=== PATIENT | male | born 1990 | race Caucasian/White ===

== ENCOUNTER 2019-07-28 07:38 | Emergency (ER) | payer OTHER ==
[~2019-07-28] VITALS: Ht 182.9 cm; Wt 81.7 kg
[2019-07-28 08:03] LABS: ABSOLUTE EOSINOPHILS 0.1 thou/uL (0.0-0.7); ABSOLUTE LYMPHOCYTES 1.4 thou/uL (0.8-5.3); ABSOLUTE MONOCYTES 0.5 thou/uL (0.0-1.2); BASOPHILS 0.9 %; EOSINOPHILS 2.5 %; HEMATOCRIT 42.7 % (42.0-52.0); HEMOGLOBIN 14.9 gm/dL (14.0-18.0); LYMPHOCYTES 27.7 %; MCH 29.6 pg (26.0-34.0); MCHC 34.9 g/dL (28.0-37.0); MCV 84.9 fL (80.0-100.0); MONOCYTES 9.3 %; MPV 9.2 fl. (7.2-11.1); NUCLEATED RBCS 0 /100WBC; PLATELET COUNT* 198 thou/uL (150-400); POLYS 59.6 %; RBC 5.03 mil/uL (4.50-6.00); RDW-CV 14.1 % (10.5-14.5); WBC 5.1 thou/uL (4.0-11.0)
[2019-07-28 08:03] LABS: URINE BILIRUBIN NEGATIVE (Negative); URINE BLOOD 3+ (Negative); URINE CLARITY SL CLOUDY; URINE COLOR YELLOW; URINE GLUCOSE-RANDOM NEGATIVE (Negative); URINE KETONES NEGATIVE (Negative); URINE LEUKOCYTES-REFLEX NEGATIVE (Negative); URINE NITRITE-REFLEX NEGATIVE (Negative); URINE PROTEIN TRACE (Negative); URINE SPECIFIC GRAVITY >= 1.030 (1.005-1.030); URINE UROBILINOGEN 0.2 E.U./dl (0.2-1.0)
[2019-07-28 08:08] LABS: CALCIUM 8.8 mg/dL (8.5-10.1); POTASSIUM 3.5 mmol/L (3.5-5.1)
[2019-07-28 08:12] LABS: ALBUMIN 4.6 g/dL (3.4-5.0); TOTAL BILIRUBIN 0.4 mg/dL (<0.1-1.0); TOTAL PROTEIN 7.7 g/dL (6.4-8.2)
[2019-07-28 08:21] LABS: BACTERIA-REFLEX 1-9 Few /HPF (None Seen); CASTS None Seen /LPF (None Seen); CRYSTALS None Seen /LPF (None Seen); MUCUS None Seen strn/LPF (None Seen); SQUAMOUS 0-3 Few /LPF (0-3); URINE RBC >20 Many /HPF (0-2); URINE WBC-REFLEX 0-5 Rare /HPF (0-5)
[2019-07-28] MEDS ORDERED: CIPROFLOXACIN500 M1 PO (08:56)
[2019-07-28] MEDS ORDERED: FLOMAX0.4 MG PO (08:56)
[2019-07-28] MEDS ORDERED: PERCOCET PO (08:56)
[2019-07-28 09:05] VITALS: BP 133/77
== END 2019-07-28 09:06 | disposition home or self-care (01) ==
LOC: M.ERS 07:38
PROVIDERS: Family Medicine
DX: N20.0 Calculus of kidney (principal)

== ENCOUNTER 2019-11-24 22:49 | Emergency (ER) | payer OTHER ==
[~2019-11-24] VITALS: Ht 185.4 cm; Wt 83.9 kg
[~2019-11-24 22:49] MED LIST: CIPROFLOXACIN500 M1 PO; FLOMAX0.4 MG PO; PERCOCET PO
[2019-11-24 23:44] LABS: ABSOLUTE EOSINOPHILS 0.1 thou/uL (0.0-0.7); ABSOLUTE LYMPHOCYTES 0.9 thou/uL (0.8-5.3); ABSOLUTE MONOCYTES 0.6 thou/uL (0.0-1.2); ABSOLUTE NEUTROPHILS 8.5 thou/uL (1.6-8.1); BASOPHILS 0.4 %; EOSINOPHILS 0.9 %; LYMPHOCYTES 8.8 %; MCH 30.1 pg (26.0-34.0); MCHC 35.1 g/dL (28.0-37.0); MCV 85.6 fL (80.0-100.0); MONOCYTES 6.4 %; MPV 10.2 fl. (7.2-11.1); NUCLEATED RBCS 0 /100WBC; PLATELET COUNT* 190 thou/uL (150-400); POLYS 83.5 %; RBC 4.67 mil/uL (4.50-6.00); WBC 10.1 thou/uL (4.0-11.0)
[2019-11-24 23:48] LABS: POTASSIUM 3.8 mmol/L (3.5-5.1)
[2019-11-24 23:53] LABS: ALBUMIN 4.2 g/dL (3.4-5.0); TOTAL BILIRUBIN 0.2 mg/dL (<0.1-1.0); TOTAL PROTEIN 7.3 g/dL (6.4-8.2)
[2019-11-25 01:02] LABS: ESR (SEDRATE) 2 mm/hr (0-15)
[2019-11-25] MEDS ORDERED: PROCTOFOAM-HC F10 GM RECTAL (02:23)
[2019-11-25] MEDS ORDERED: HYDROCODON-ACE1 EAC8 PO (02:24)
[2019-11-25 02:33] VITALS: BP 132/84
== END 2019-11-25 02:34 | disposition home or self-care (01) ==
LOC: M.ERS 22:49
PROVIDERS: Emergency Medicine
DX: K62.89 Other specified diseases of anus and rectum (principal); R42 Dizziness and giddiness; Z87.442 Personal history of urinary calculi